=== PATIENT | male | born 1990 | race Caucasian/White ===

== ENCOUNTER 2019-11-07 03:38 | Emergency (ER) | payer MEDICAID ==
--- NOTE | 2019-11-07 04:20 | EDM.PDOC ---
ED HPI GENERAL MEDICAL PROBLEM - General Chief Complaint: Abdominal Pain Stated Complaint: ABD PAIN Time Seen by Provider: 11/07/19 04:00 Source of Information: Reports: Patient History Limitations: Reports: No Limitations - History of Present Illness INITIAL COMMENTS - FREE TEXT/NARRATIVE: 29-year-old male who has had chronic abdominal pain, and tonight because he cannot sleep. Is been worked up by Dr. Rodríguez, had a normal CT scan a few days ago and is scheduled for colonoscopy as soon as COVID-19 test comes back negative. No fevers, chills, bowel changes, abdominal distention, urinary symptoms. Pain is mostly in his "transverse colon". Onset: Unknown/Unsure Duration: Chronic Location: Reports: Abdomen Associated Symptoms: Reports: No Other Symptoms. Denies: Fever/Chills, Loss of Appetite, Nausea/Vomiting abd pain Pain Score (Numeric/FACES): 7 - Related Data Allergies Allergy/AdvReac Type Severity Reaction Status Date / Time cefaclor [From Ceclor] Allergy Cannot Verified 11/07/19 03:59 Remember Home Meds: Home Meds Bismuth Subsalicylate [Pepto Bismol] 30 ml PO ASDIRECTED PRN 11/07/19 [History] Past Medical History Gastrointestinal History: Reports: Other (See Below) Other Gastrointestinal History: abd pain undiagnosed Psychiatric History: Reports: Anxiety, Depression Immunologic History: Reports: Other (See Below) Other Immunologic History: Hepititis C - Infectious Disease History Infectious Disease History: Reports: Chicken Pox - Past Surgical History HEENT Surgical History: Reports: Myringotomy w Tube(s) Social & Family History - Tobacco Use Smoking Status *Q: Current Every Day Smoker Years of Tobacco use: 15 Packs/Tins Daily: 1 Second Hand Smoke Exposure: Yes - Caffeine Use Caffeine Use: Reports: Coffee, Soda - Recreational Drug Use Recreational Drug Use: Yes Drug Use in Last 12 Months: Yes 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 Drug Use Frequency: Daily Recreational Drug Last Use: Pt stated he has not used meth for x2 months ED ROS GENERAL - Review of Systems Review Of Systems: See Below Constitutional: Denies: Fever, Chills Respiratory: Reports: No Symptoms Cardiovascular: Reports: No Symptoms GI/Abdominal: Reports: Abdominal Pain : Reports: No Symptoms Musculoskeletal: Reports: No Symptoms Skin: Reports: No Symptoms Neurological: Reports: No Symptoms ED EXAM, GI/ABD - Physical Exam Exam: See Below Exam Limited By: No Limitations General Appearance: Alert, No Apparent Distress Eyes: Bilateral: Normal Appearance Respiratory/Chest: No Respiratory Distress, Lungs Clear GI/Abdominal Exam: Normal Bowel Sounds, Tender (Along the left anterior abdomen and epigastric area, no focal guarding or rebound) Course - Vital Signs Last Recorded V/S: Last Vital Signs Temp 98.0 F 11/07/19 04:02 Pulse 75 11/07/19 04:02 Resp 14 11/07/19 04:02 BP 118/58 L 11/07/19 04:02 Pulse Ox 98 11/07/19 04:02 - Orders/Labs/Meds Meds: Medications Discontinued Medications Generic Name Dose Route Start Last Admin Trade Name Lora PRN Reason Stop Dose Admin Ketorolac Tromethamine 60 mg 11/07/19 04:18 11/07/19 04:27 Toradol IM 11/07/19 04:19 60 mg ONETIME ONE Administration - Re-Assessments/Exams Free Text/Narrative Re-Assessment/Exam: 11/07/19 04:40 Past records and recent CT scan were reviewed. Patient was given a shot of Toradol, and encouraged to take something orally for pain as he has been avoiding because he likes to avoid "manmade things". Departure - Departure Time of Disposition: 04:23 Disposition: Home, Self-Care 01 Clinical Impression: Chronic abdominal pain - Discharge Information Instructions: Abdominal Pain, Adult Referrals: Adolfo Rodríguez Sr, MD [Primary Care Provider] - Forms: ED Department Discharge Care Plan Goals: Follow-up with Dr. Rodríguez to finish your work-up for your chronic abdominal pain. You should not be afraid to take some ibuprofen or Tylenol for pain control if needed. Sepsis Event Note (ED) - Evaluation Sepsis Screening Result: No Definite Risk - Focused Exam Vital Signs: Vital Signs Temp Pulse Resp BP Pulse Ox 11/07/19 04:02 98.0 F 75 14 118/58 L 98 11/07/19 04:01 98.0 F 75 14 118/58 L 98
[2019-11-07] MEDS: Ketorolac 60 MG/2 ML SDV IM ONE (04:27)
== END 2019-11-07 04:33 | disposition home or self-care (01) ==
LOC: JP.ED 03:38
DX: R10.13 Epigastric pain (principal); F17.210 Nicotine dependence, cigarettes, uncomplicated; Z88.1 Allergy status to other antibiotic agents
CPT/HCPCS: 96372; 99283; J1885

== ENCOUNTER 2020-01-10 06:36 | Day surgery (SDC) | payer OTHER, MEDICAID ==
[2020-01-10] MEDS ORDERED: Sodium Chloride 0.9% 1,000 ML IV SCH (07:00)
[2020-01-10] MEDS ORDERED: Propofol 200 MG/20 ML SDV ONE ×2 (07:24→07:42)
[2020-01-10] MEDS ORDERED: fentaNYL 100 MCG/2 ML SDV ONE (07:24)
[2020-01-10] MEDS ORDERED: Midazolam 1 MG/ML 2 ML SDV ONE (07:24)
--- NOTE | 2020-01-10 09:14 | PROC ---
DATE OF PROCEDURE: SURGEON: Adolfo Rodríguez MD INDICATION: Rolf is a 29-year-old male who comes in for colonoscopy. He has had diarrhea of significance for several months. He has a history of drug use in the past. He also has a significant family history of ulcerative colitis, Crohn disease, and ascending cholangitis in his immediate family. The risks and benefits were explained to the patient and was taken to the OR. PROCEDURE IN DETAIL: Anesthesia was given by the nurse fast food supervisor. During the procedure, we used 2 mg of Versed, 300 mg of propofol, and 100 mcg of fentanyl. The Olympus 180AL scope was used, was placed in the rectum and passed under direct vision. Examination of the rectum with a gloved finger was unremarkable. We advanced the tube and did get to the cecum with minimal difficulty. Upon retraction of the tube, note no lesions or ulceration throughout the entire colon, entirely normal. The tube was removed. The patient tolerated the procedure well. PREOPERATIVE DIAGNOSES: Diarrhea and abdominal pain. POSTOPERATIVE DIAGNOSIS: Normal colon from cecum to rectum. I feel that this test does not explain his abdominal pain and further investigations need to be done. Adolfo Rodríguez MD /[id number]
== END 2020-01-10 08:50 | disposition home or self-care (01) ==
LOC: JP.SDS 06:36
PROVIDERS: ATTEND Internal Medicine
DX: R19.7 Diarrhea, unspecified (principal); R10.9 Unspecified abdominal pain; F17.210 Nicotine dependence, cigarettes, uncomplicated; E66.9 Obesity, unspecified; Z68.36 Body mass index [BMI] 36.0-36.9, adult; Z83.79 Family history of other diseases of the digestive system; Z87.898 Personal history of other specified conditions
CPT/HCPCS: 45378; J2250; J2704; J3010; J7030

== ENCOUNTER 2020-02-22 07:03 | Day surgery (SDC) | payer OTHER, MEDICAID ==
[2020-02-22] MEDS ORDERED: Bupivacaine 0.5%/EPINEPHrine 1:200,000 50 ML MDV ONE (07:08)
[2020-02-22] MEDS ORDERED: Dexamethasone 4 MG/ML SDV ONE (08:06)
[2020-02-22] MEDS ORDERED: Propofol 200 MG/20 ML SDV ONE (08:06)
[2020-02-22] MEDS ORDERED: Rocuronium 50 MG/5 ML Vial ONE (08:06)
[2020-02-22] MEDS ORDERED: fentaNYL 250 MCG/5 ML SDV ONE (08:06)
[2020-02-22] MEDS ORDERED: Succinylcholine 200 MG/10 ML MDV ONE (08:06)
[2020-02-22] MEDS ORDERED: Neostigmine Methylsulfate 1 MG/ML 5 ML Syringe ONE (08:06)
[2020-02-22] MEDS ORDERED: Glycopyrrolate 0.2 MG/ML 5 ML MDV ONE (08:06)
[2020-02-22] MEDS ORDERED: Ondansetron 4 MG/2 ML SDV ONE (08:06)
[2020-02-22] MEDS: Dextrose 5%-Lactated Ringers 1,000 ML IV SCH ×2 (08:21→12:31)
[2020-02-22] MEDS ORDERED: Meropenem 500 MG in Sodium Chloride 0.9% 50 ML IV ONE (09:00)
[2020-02-22] MEDS ORDERED: Ketamine 500 MG/5 ML MDV IV SCH (09:00)
[2020-02-22] MEDS ORDERED: Ketamine 50 MG in Sodium Chloride 0.9% 49.5 ML IV SCH (09:00)
[2020-02-22] MEDS ORDERED: fentaNYL 100 MCG/2 ML SDV ONE (09:44)
[2020-02-22] MEDS ORDERED: hydrOXYzine HCL 100 MG/2 ML SDV IM ONE (09:48)
[2020-02-22] MEDS ORDERED: fentaNYL 100 MCG/2 ML SDV IVPUSH ONE (10:04)
[2020-02-22] MEDS ORDERED: Ondansetron 4 MG/2 ML SDV IVPUSH PRN (11:00)
[2020-02-22] MEDS ORDERED: HYDROmorphone 0.5 MG/0.5 ML Syringe IVPUSH PRN (11:00)
[2020-02-22] MEDS ORDERED: HYDROmorphone 1 MG/ML Syringe IV PRN (11:00)
[2020-02-22] MEDS ORDERED: hydrOXYzine HCL 100 MG/2 ML SDV IM PRN (11:04)
[2020-02-22] MEDS ORDERED: Nicotine 21 MG/24 Hr Patch TRDERM PRN (11:04)
[2020-02-22] MEDS: oxyCODONE 5 MG Tab PO PRN ×2 (11:28→16:43)
[2020-02-22] MEDS ORDERED: Pantoprazole 40 MG Vial IVPUSH SCH ×2 (12:00)
[2020-02-22] MEDS ORDERED: Meropenem 500 MG in Sodium Chloride 0.9% 50 ML IV SCH ×2 (14:00→18:00)
[2020-02-22] MEDS ORDERED: Ibuprofen 600 MG Tab PO PRN (14:38)
--- NOTE | 2020-02-26 15:12 | OR ---
DATE OF PROCEDURE: 02/22/2020 SURGEON: Luis Fernando Quiroz MD PREOPERATIVE DIAGNOSES: 1. Chronic cholecystitis and cholelithiasis. 2. History of hepatitis C infection. POSTOPERATIVE DIAGNOSES: 1. Chronic cholecystitis and cholelithiasis. 2. Chronic hepatitis C infection with mildly enlarged, somewhat firm liver. OPERATIVE PROCEDURE: Diagnostic laparoscopy with: 1. Cholecystectomy (02484). 2. Domenico-Cut needle biopsies, left lobe of liver (94424). ANESTHESIA: General. CALENDERER: Jayda Mccormick PA-C INDICATION FOR PROCEDURE: This is a 29-year-old referred from Dr. Adolfo Rodríguez with increasing upper abdominal pain. The patient has known history of hepatitis C infection and is initiating treatment for that shortly. Recent ultrasound showed cholelithiasis, and with the suspicion of the patient having some biliary colic, the patient underwent a CCK- stimulated HIDA scan, which showed a slightly below normal ejection fraction with the CCK injection causing reproduction of the patient's pain. Given this, he is referred for a cholecystectomy at this time. Potential risks of the procedure including bleeding, infection, injury to underlying viscera, problems with stones migrating to common bile duct, as well as possibility of incomplete relief of symptoms following the cholecystectomy were reviewed, and the patient wishes to proceed. DETAILS OF PROCEDURE: The patient was taken to the operating room, and after general endotracheal anesthesia was induced, the abdomen was prepped and draped. A transverse subumbilical incision was made and peritoneal cavity entered under direct vision with an Optiview trocar, inflated to 15 mmHg pressure with CO2. The laparoscope was reinserted, no underlying trocar insertion site injuries were seen. Following this, a 12 mm epigastric trocar was placed along with 5 mm right abdominal trocar and the upper abdomen examined. The patient's liver was noted to be somewhat enlarged, however, was entirely smooth in terms of its surface. Did not appear to be somewhat firmer than normal on manipulation. There was no gross evidence of portal hypertension within the mesenteric venous system. Photographic imaging of the liver was undertaken. At that point, Domenico-Cut needle biopsies were obtained from the right lobe of the liver. Minimal bleeding from the biopsy sites, which was controlled with electrocautery. The gallbladder was then retracted anteriorly and laterally. Gallbladder as expected was somewhat edematous, particularly in the area of the cystohepatic triangle. Beginning in the gallbladder neck and cystic duct junction, it was delineated with Harmonic scalpel as was the adjacent artery and both structures were taken with three clips proximally and one distally and divided. The gallbladder was then dissected off the gallbladder bed using Harmonic scalpel. It was noted to contain one fairly large stone and some smaller stones and sludge type material within it. The area of dissection was then inspected. No bleeding or bile leaks were seen. A Renato- Grimes drain was taken out through the right lateral trocar site and placed adjacent to the area of the gallbladder bed. The trocars were then sequentially removed and peritoneal cavity deflated. Incisions were closed with some 0 Vicryl stitch at the fascia level and 4- 0 Vicryl skin stitch. Prior to closure, bilateral transversus abdominis plane blocks were placed. The area of incision was also anesthetized with some 0.5% Marcaine. Then, the patient was taken to the recovery room in satisfactory condition. There were no other complications. Physician physician office assistant, Jayda Mccormick, played an essential role in assisting in this case, helping to position the patient, retract structures as needed, as well as suturing and cutting sutures when indicated. Her presence improved patient safety and decreased the operative time. Luis Fernando Quiroz MD /[id number]
== END 2020-02-22 19:04 | disposition home or self-care (01) ==
LOC: JP.SDS 07:03 → JP.MS 10:00 → JP.SDS 19:04
PROVIDERS: ATTEND Surgery
DX: K80.10 Calculus of gallbladder with chronic cholecystitis without obstruction (principal); K76.0 Fatty (change of) liver, not elsewhere classified; R74.8 Abnormal levels of other serum enzymes; B18.2 Chronic viral hepatitis C; K21.9 Gastro-esophageal reflux disease without esophagitis; F17.210 Nicotine dependence, cigarettes, uncomplicated; E66.9 Obesity, unspecified; Z01.812 Encounter for preprocedural laboratory examination; Z20.828 Contact with and (suspected) exposure to other viral communicable diseases; Z79.899 Other long term (current) drug therapy; Z88.8 Allergy status to other drugs, medicaments and biological substances
CPT/HCPCS: 36415; 47001; 47562; 80053; 83735; 84100; 85027; 85610; 87635; A9270; C9113; J0171; J0330; J1100; J1170; J2185; J2405; J2704; J2710; J2795; J3010; J3410; J3490; J7050; J7121; 88304; 88307; 88313; U0002

== ENCOUNTER 2020-03-27 06:36 | Day surgery (SDC) | payer OTHER, MEDICAID ==
[2020-03-27] MEDS ORDERED: Lactated Ringers 1,000 ML IV SCH (08:00)
[2020-03-27] MEDS ORDERED: Midazolam 1 MG/ML 2 ML SDV ONE (08:10)
[2020-03-27] MEDS ORDERED: fentaNYL 100 MCG/2 ML SDV ONE (08:10)
[2020-03-27] MEDS ORDERED: Propofol 200 MG/20 ML SDV ONE (08:10)
--- NOTE | 2020-03-27 11:48 | PROC ---
DATE OF PROCEDURE: SURGEON: Adolfo Rodríguez MD INDICATIONS: Rolf is a 29-year-old male who comes in for esophagogastroduodenoscopy. He has been seeing GI specialist in [place], but he has been having left upper quadrant abdominal pain and wanted to have an esophageal study to see if there is any reason for the abdominal pain. The risks and benefits were explained to the patient and was taken to the OR. PROCEDURE IN DETAIL: Anesthesia was given by nurse poultry trimmer. During the procedure, we used 2 mg of Versed, 100 mcg of fentanyl and 200 mg of propofol. The Olympus -180 scope was used, was placed into the pharynx without difficulty and advanced under direct vision. We did get to the stomach and through the pylorus advanced into the 1st and 2nd part of the duodenum. Upon retraction of the tube noted significant mucosal erythema with mild swelling. Biopsy was done. The tube was brought back into the stomach, which revealed no abnormality. The greater and lesser curvature were closely evaluated as well as retroflexion of the tube into the fundus, which revealed no abnormality. The GE junction was identified. There was no significant distal esophageal problem. The remainder of the esophagus was unremarkable. The vocal cords moved symmetrically. No obvious pathology noted. The tube was removed. The patient tolerated the procedure well. Preop: Abdominal pain. Postop: Mild erythema in the small intestine. A whitish appearance in the small intestine. Biopsy is pending. I feel that there is no evidence of any major problem on this study. I feel that this does not answer the problem of the left upper quadrant abdominal pain. If a CT of the abdomen has not been done, this is one thing that we could to identify the reason for the abdominal pain. Adolfo Rodríguez MD /[id number]
== END 2020-03-27 10:13 | disposition home or self-care (01) ==
LOC: JP.SDS 06:36
PROVIDERS: ATTEND Internal Medicine
DX: K52.9 Noninfective gastroenteritis and colitis, unspecified (principal); E66.01 Morbid (severe) obesity due to excess calories; Z01.812 Encounter for preprocedural laboratory examination; Z20.828 Contact with and (suspected) exposure to other viral communicable diseases; Z68.39 Body mass index [BMI] 39.0-39.9, adult
CPT/HCPCS: 88305; J2250; J2704; J3010; J7120; U0002